=== PATIENT | female | born 1990 | race Hispanic/Latino ===

== ENCOUNTER 2018-08-09 23:39 | Emergency (ER) | payer BC ==
[2018-08-10 01:53] VITALS: BP 102/65; PULSE 66; RESP 17; TEMP 97.7; O2SAT 99
[2018-08-10] MEDS ORDERED: Lidocaine PF 2% (5 ml) Inj (For Cardiac Arrhy) ONE (02:09)
--- NOTE | 2018-08-10 02:52 | ED PDOC ---
HPI: Trauma/Fall - HPI Time Seen by Provider: 08/10/18 01:37 Chief Complaint (Nursing): Abnormal Skin Integrity History Per: Patient History/Exam Limitations: no limitations Onset/Duration Of Symptoms: Mins Additional Complaint(s): Patient cut herself with knife cutting food prior to arrival on R 4th finger. Denies loss of sensation. Tetanus up to date. Past Medical History Reviewed: Historical Data, Nursing Documentation, Vital Signs Vital Signs: Last Vital Signs Temp 97.7 F 08/10/18 01:20 Pulse 66 08/10/18 01:20 Resp 17 08/10/18 01:20 BP 102/65 08/10/18 01:20 Pulse Ox 99 08/10/18 01:20 - Medical History PMH: No Chronic Diseases - Family History Family History: States: Unknown Family Hx - Allergies Allergies/Adverse Reactions: Allergies Allergy/AdvReac Type Severity Reaction Status Date / Time No Known Allergies Allergy Verified 08/10/18 01:52 Review of Systems ROS Statement: Except As Marked, All Systems Reviewed And Found Negative Physical Exam - Reviewed Nursing Documentation Reviewed: Yes Vital Signs Reviewed: Yes - Physical Exam Appears: Positive for: Well, Non-toxic, No Acute Distress Head Exam: Positive for: ATRAUMATIC, NORMAL INSPECTION, NORMOCEPHALIC Extremity: Positive for: Other (R 4th finger with laceration approximately 1.5cm , clean, linear, mild bleeding; NV intact, no loss of motor function, sensation intact) - ECG O2 Sat by Pulse Oximetry: 99 Pulse Ox Interpretation: Normal Medical Decision Making Medical Decision Making: Laceration- patient sutured. Instructions on wound care provided. Procedures - Laceration/Wound Repair Right Finger Wound's Depth, Shape: superficial Wound Explored: clean Anesthesia: 1% Lidocaine Suture Size/Type: 5:0 Number of Sutures: 5 Layer Closure?: No Wound Complexity: Simple Disposition - Clinical Impression Clinical Impression: Laceration - Disposition Referrals: Y[facility] Finnegan [Outside] Disposition Time: 02:55 Condition: STABLE Instructions: Laceration Repair With Stitches (DC) Forms: Virtual 3-D Display for Smartphones ([place]ien)
== END 2018-08-10 02:47 | disposition home or self-care (01) ==
LOC: H.ER 23:39
DX: S61.214A Laceration without foreign body of right ring finger without damage to nail, initial encounter (principal); W26.0XXA Contact with knife, initial encounter; Y93.G9 Activity, other involving cooking and grilling